=== PATIENT | female | born 1990 | race Caucasian/White ===

== ENCOUNTER 2019-07-14 11:20 | Emergency (ER) | payer BC ==
--- NOTE | 2019-07-14 12:01 | EDM.PDOC ---
ED HPI GENERAL MEDICAL PROBLEM - General Chief Complaint: DIETETIC TECHNICIAN Problem Stated Complaint: 12 WKS PG - BLEEDING Time Seen by Provider: 07/14/19 11:42 Source of Information: Reports: Patient History Limitations: Reports: No Limitations - History of Present Illness INITIAL COMMENTS - FREE TEXT/NARRATIVE: Patient is a 29-year-old female who presents with complaints of light vaginal bleeding. She is 12 weeks and has a history of 1 miscarriage at 8 weeks gestation. States last night she passed a dime sized clot and has had some light bleeding visible on the toilet paper when she wipe. She has some mild suprapubic cramping; however, she has passed no further clots. Patient did have sexual intercourse the night before last, however did not have any bleeding after that time. Patient's DIETETIC TECHNICIAN is Dr. Gonzalez. Patient was seen at the [facility] prior to coming to the ER states they did lab work and no further testing or examination. They told her that she was having a miscarriage and that there was nothing they could do about it. She was dissatisfied with her experience there so she came to our emergency department to be further evaluated. 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 ED EXAM - Physical Exam Exam: See Below Exam Limited By: No Limitations General Appearance: Alert, WD/WN, No Apparent Distress Respiratory/Chest: No Respiratory Distress, Lungs Clear, Normal Breath Sounds, No Accessory Muscle Use, Chest Non-Tender Cardiovascular: Normal Peripheral Pulses, Regular Rate, Rhythm, No Edema, No Gallop, No JVD, No Murmur, No Rub GI/Abdominal Exam: Normal Bowel Sounds, Soft, No Organomegaly, No Distention, No Abnormal Bruit, No Mass, Pelvis Stable, Other (Suprapubic tenderness.) Heart Tones: Not [place] Course - Vital Signs Last Recorded V/S: Last Vital Signs Temp 98.0 F 07/14/19 11:30 Pulse 74 07/14/19 11:30 Resp 14 07/14/19 11:30 BP 126/76 07/14/19 11:30 Pulse Ox 98 07/14/19 11:30 - Orders/Labs/Meds Orders: Active Orders 24 hr Category Date Time Status Pelvic Exam, Set Up [RC] ASDIRECTED Care 07/14/19 13:53 Active Labs: Laboratory Tests 07/14/19 07/14/19 07/14/19 Range/Units 11:55 12:10 12:10 WBC 11.19 H (3.98-10.04) K/mm3 RBC 4.63 (3.98-5.22) M/mm3 Hgb 13.7 (11.2-15.7) gm/dl Hct 40.8 (34.1-44.9) % MCV 88.1 (79.4-94.8) fl MCH 29.6 (25.6-32.2) pg MCHC 33.6 (32.2-35.5) g/dl RDW Std Deviation 43.7 (36.4-46.3) fL Plt Count 167 L (182-369) K/mm3 MPV 11.2 (9.4-12.3) fl Neut % (Auto) 62.1 (34.0-71.1) % Lymph % (Auto) 27.0 (19.3-51.7) % [place] % (Auto) 6.6 (4.7-12.5) % Eos % (Auto) 3.5 (0.7-5.8) Baso % (Auto) 0.4 (0.1-1.2) % Neut # (Auto) 6.96 H (1.56-6.13) K/mm3 Lymph # (Auto) 3.02 (1.18-3.74) K/mm3 [place] # (Auto) 0.74 H (0.24-0.36) K/mm3 Eos # (Auto) 0.39 H (0.04-0.36) K/mm3 Baso # (Auto) 0.04 (0.01-0.08) K/mm3 Sodium 139 (136-145) mEq/L Potassium 3.6 (3.5-5.1) mEq/L Chloride 106 (98-107) mEq/L Carbon Dioxide 23 (21-32) mEq/L Anion Gap 13.6 (5-15) BUN 8 (7-18) mg/dL Creatinine 0.6 (0.55-1.02) mg/dL Est Cr Clr Drug Dosing 131.85 mL/min Estimated GFR (MDRD) > 60 (>60) mL/min BUN/Creatinine Ratio 13.3 L (14-18) Glucose 100 (74-106) mg/dL Calcium 9.1 (8.5-10.1) mg/dL Total Bilirubin 0.2 (0.2-1.0) mg/dL AST 18 (15-37) U/L ALT 41 (14-59) U/L Alkaline Phosphatase 93 (46-116) U/L Total Protein 7.0 (6.4-8.2) g/dl Albumin 3.0 L (3.4-5.0) g/dl Globulin 4.0 gm/dL Albumin/Globulin Ratio 0.8 L (1-2) TSH 3rd Generation 2.017 (0.358-3.74) uIU/mL HCG, Quant mIU/mL Blood Type 07/14/19 07/14/19 Range/Units 12:10 12:10 WBC (3.98-10.04) K/mm3 RBC (3.98-5.22) M/mm3 Hgb (11.2-15.7) gm/dl Hct (34.1-44.9) % MCV (79.4-94.8) fl MCH (25.6-32.2) pg MCHC (32.2-35.5) g/dl RDW Std Deviation (36.4-46.3) fL Plt Count (182-369) K/mm3 MPV (9.4-12.3) fl Neut % (Auto) (34.0-71.1) % Lymph % (Auto) (19.3-51.7) % [place] % (Auto) (4.7-12.5) % Eos % (Auto) (0.7-5.8) Baso % (Auto) (0.1-1.2) % Neut # (Auto) (1.56-6.13) K/mm3 Lymph # (Auto) (1.18-3.74) K/mm3 [place] # (Auto) (0.24-0.36) K/mm3 Eos # (Auto) (0.04-0.36) K/mm3 Baso # (Auto) (0.01-0.08) K/mm3 Sodium (136-145) mEq/L Potassium (3.5-5.1) mEq/L Chloride (98-107) mEq/L Carbon Dioxide (21-32) mEq/L Anion Gap (5-15) BUN (7-18) mg/dL Creatinine (0.55-1.02) mg/dL Est Cr Clr Drug Dosing mL/min Estimated GFR (MDRD) (>60) mL/min BUN/Creatinine Ratio (14-18) Glucose (74-106) mg/dL Calcium (8.5-10.1) mg/dL Total Bilirubin (0.2-1.0) mg/dL AST (15-37) U/L ALT (14-59) U/L Alkaline Phosphatase (46-116) U/L Total Protein (6.4-8.2) g/dl Albumin (3.4-5.0) g/dl Globulin gm/dL Albumin/Globulin Ratio (1-2) TSH 3rd Generation (0.358-3.74) uIU/mL HCG, Quant 89243.0 mIU/mL Blood Type O POSITIVE - Re-Assessments/Exams Free Text/Narrative Re-Assessment/Exam: 07/14/19 14:23 She is hematology was found to be grossly unremarkable. Hemoglobin is normal. TSH is normal. hCG level correlates with dates. Ultrasound shows a single intrauterine gestation with a heart rate of 160. Estimated due date of 2019. It does also show 2 subchorionic hemorrhages that are slightly increased from previous exam. Pelvic exam showed a closed cervical loss with no active bleeding noted. Patient is O+ so there is no need for RhoGam. Discussed these findings with the patient. Recommended that she abstain from sexual activity and follow-up with her DIETETIC TECHNICIAN next week. Discussed that we would like her to return to the ER if she has increased bleeding to the point of saturating 1 pad an hour for more than 2 hours. Also she is having intolerable cramping she may also return. Discharge instructions as documented. Departure - Departure Time of Disposition: 14:24 Disposition: Home, Self-Care 01 Condition: Good Clinical Impression: Subchorionic hematoma Qualifiers: Fetus number: single or unspecified fetus Trimester: first trimester Qualified Code(s): O41.8X10 - Other specified disorders of amniotic fluid and membranes, first trimester, not applicable or unspecified - Discharge Information *PRESCRIPTION DRUG MONITORING PROGRAM REVIEWED*: No *COPY OF PRESCRIPTION DRUG MONITORING REPORT IN PATIENT ANGELA: No Instructions: Subchorionic Hematoma Referrals: Dusty Gonzalez MD [Primary Care Provider] - Forms: ED Department Discharge Additional Instructions: You were seen in the emergency department today for light vaginal bleeding. Your work-up included blood work and an ultrasound of your abdomen. Your blood work was found to be normal. Your TSH level is normal, your hCG levels correlate with your dates. And your hemoglobin is normal. Ultrasound did show a single intrauterine gestation. Heart rate was 160. Estimated due date by measurements is 01/26/2020. The ultrasound did also show 2 subchorionic hemorrhages which are slightly increased in size from your previous ultrasound. As we discussed, the this does not mean that you are actively miscarrying, however it does increase your risk of miscarriage. I would recommend that you abstain from sexual activity and follow-up with your DIETETIC TECHNICIAN next week. If you should experience increased bleeding to where you are saturating 1 pad an hour for more than 2 hours or increased pelvic cramping, please return to the emergency department. Sepsis Event Note - Evaluation Sepsis Screening Result: No Definite Risk - Focused Exam Date Exam was Performed: 07/14/19 Time Exam was Performed: 23:57 - My Orders Last 24 Hours: My Active Orders 07/14/19 13:53 Pelvic Exam, Set Up [RC] ASDIRECTED - Assessment/Plan Last 24 Hours: My Active Orders 07/14/19 13:53 Pelvic Exam, Set Up [RC] ASDIRECTED
--- NOTE | 2019-07-14 14:00 | US ---
1st trimester obstetrical ultrasound: Multiple real-time images were obtained transabdominally. Comparison: Previous 1st trimester obstetrical ultrasound of 07/02/19. Dates: LMP: LMP given as 01/29/20, TRUDI 01/29/20, gestational age 11 weeks 4 days Current ultrasound: TRUDI 01/26/20, gestational age 12 weeks 0 days Earliest ultrasound (07/02/19): TRUDI 01/29/20, gestational age 11 weeks 4 days Single intrauterine gestation is seen. Amniotic fluid volume is normal. 2 subchorionic hemorrhages are noted which are slightly increased in size from prior exam. Fibroid is noted within the uterus measuring 5.4 cm in greatest size. This is not appreciated on prior study, this may have not been previously imaged as the reason for for the apparent interval change. Maternal ovaries are within normal limits. Measurements: [place]-rump length: 5.25 cm - 12 weeks 0 days Heart rate: 160 bpm Impression: 1. Single intrauterine gestation. Dates as noted above. 2. Slight increasing subchorionic hemorrhages. 3. Uterine fibroid. 4. Normal heart rate of the embryo. Diagnostic code #3 This report was dictated in MDT
== END 2019-07-14 14:40 | disposition home or self-care (01) ==
LOC: JD.ED 11:20
DX: O41.8X10 Other specified disorders of amniotic fluid and membranes, first trimester, not applicable or unspecified (principal); Z3A.12 12 weeks gestation of pregnancy
CPT/HCPCS: 36415; 76801; 76801-26; 80053; 84443; 84702; 85025; 86900; 86901; 99282; 99284-25